=== PATIENT | female | born 1955 | race Hispanic/Latino ===

== ENCOUNTER 2018-04-27 08:54 | Emergency (ER) | payer BC, MEDICARE ==
[2018-04-27 09:31] LABS: BASOPHILS % (AUTO) 0.4 % (0.0-5.0); EOSINOPHILS % (AUTO) 0.7 % (0.0-8.0); HEMATOCRIT 40.8 % (36-48); LYMPHOCYTES % (AUTO) 12.1 % (21.0-51.0); MEAN CORPUSCULAR HEMOGLOBIN 28.2 pg (27.0-33.0); MEAN CORPUSCULAR HGB CONC 32.8 g/dL (32.0-36.0); MEAN CORPUSCULAR VOLUME 85.9 fL (79-99); MONOCYTES % (AUTO) 4.8 % (3.0-13.0); PLATELET COUNT (AUTO) 233 K/uL (130-400); RED BLOOD CELL COUNT(AUTO) 4.76 MIL/uL (4.00-5.50); RED CELL DISTRIBUTION WIDTH 13.8 % (11.0-15.5); WHITE BLOOD COUNT (AUTO) 7.2 K/uL (4.8-10.8)
[2018-04-27 09:53] LABS: CREATININE 0.7 mg/dL (0.5-1.5); POTASSIUM 3.4 mmol/L (3.5-5.1)
[2018-04-27 09:55] LABS: ALBUMIN 4.1 g/dL (3.5-5.0); BILIRUBIN,TOTAL 0.5 mg/dL (0.2-1.0)
[2018-04-27] MEDS ORDERED: MORPHINE SULFATE 4 MG/1ML SYG ONE (10:16)
[2018-04-27] MEDS ORDERED: ONDANSETRON HCL 4 MG/2 ML VIAL ONE (10:18)
== END 2018-04-27 11:34 | disposition home or self-care (01) ==
LOC: EDH 08:54
DX: J01.20 Acute ethmoidal sinusitis, unspecified (principal); R51 Headache; I10 Essential (primary) hypertension; I25.2 Old myocardial infarction; Z88.6 Allergy status to analgesic agent; Z90.710 Acquired absence of both cervix and uterus; Z90.49 Acquired absence of other specified parts of digestive tract
CPT/HCPCS: 36415; 70450; 80053; 85025; 96374; 96375; 99285; J2270; J2405

== ENCOUNTER 2018-10-07 15:04 | Emergency (ER) | payer BC, MEDICARE, OTHER ==
[2018-10-07] MEDS ORDERED: TRAMADOL HCL 50 MG TABLET ONE (15:53)
== END 2018-10-07 16:04 | disposition home or self-care (01) ==
LOC: EDH 15:04
DX: S82.092A Other fracture of left patella, initial encounter for closed fracture (principal); I10 Essential (primary) hypertension; I25.2 Old myocardial infarction; Z90.49 Acquired absence of other specified parts of digestive tract; Z90.710 Acquired absence of both cervix and uterus; Z88.6 Allergy status to analgesic agent; W18.39XA Other fall on same level, initial encounter; Y93.89 Activity, other specified; Y92.89 Other specified places as the place of occurrence of the external cause; Y99.8 Other external cause status
CPT/HCPCS: 29505; 73562

== ENCOUNTER → 2019-10-24 | Outpatient (CLI) | payer OTHER ==
[~2019-10-24] MED LIST: REGADENOSON 0.4 MG/5 ML PF SYG IVP ONE; REGADENOSON 0.4 MG/5 ML PF SYG IVP SCH
== END | disposition home or self-care (01) ==
LOC: SHCH 07:53
PROVIDERS: ATTEND Internal Medicine Cardiovascular Disease
DX: I25.89 Other forms of chronic ischemic heart disease (principal); I21.19 ST elevation (STEMI) myocardial infarction involving other coronary artery of inferior wall; I21.29 ST elevation (STEMI) myocardial infarction involving other sites; I25.10 Atherosclerotic heart disease of native coronary artery without angina pectoris
CPT/HCPCS: 78452; 93017; 96374; A9500 ×2; J2785

== ENCOUNTER → 2021-10-19 | Outpatient (CLI) | payer OTHER ==
[~2021-10-19] VITALS: Ht 154.9 cm; Wt 74.4 kg
[~2021-10-19] MED LIST changes: -REGADENOSON 0.4 MG/5 ML PF SYG IVP ONE
== END | disposition home or self-care (01) ==
LOC: SHCH 09:01
PROVIDERS: ATTEND Internal Medicine Cardiovascular Disease
DX: Z01.810 Encounter for preprocedural cardiovascular examination (principal); M17.11 Unilateral primary osteoarthritis, right knee; I25.5 Ischemic cardiomyopathy; I51.7 Cardiomegaly
CPT/HCPCS: 78452; 93017; 96374; A9500 ×2; J2785

== ENCOUNTER 2022-02-24 18:38 | Observation (INO) | payer OTHER ==
[~2022-02-24] VITALS: Ht 154.9 cm; Wt 71.0 kg
[2022-02-24] MEDS ORDERED: ASPIRIN 325MG TAB PO ONE (19:00)
[2022-02-24] MEDS ORDERED: NITROGLYCERIN 0.4 MG SL TAB SL PRN (19:00)
[2022-02-24] MEDS ORDERED: NITROGLYCERIN 1GM OINT 1 INCH/1GM TD ONE (19:00)
[2022-02-24 19:06] LABS: BASOPHILS % (AUTO) 0.3 % (0.0-5.0); EOSINOPHILS % (AUTO) 2.2 % (0.0-8.0); HEMATOCRIT 36.2 % (36-48); MEAN CORPUSCULAR HEMOGLOBIN 28.6 pg (27.0-33.0); MEAN CORPUSCULAR HGB CONC 33.7 g/dL (32.0-36.0); MEAN CORPUSCULAR VOLUME 84.8 fL (79-99); MONOCYTES % (AUTO) 7.7 % (3.0-13.0); NEUTROPHILS % (AUTO) 66.5 % (40.0-77.0); PLATELET COUNT (AUTO) 275 K/uL (130-400); RED BLOOD CELL COUNT(AUTO) 4.27 MIL/uL (4.00-5.50); RED CELL DISTRIBUTION WIDTH 13.9 % (11.0-15.5); WHITE BLOOD COUNT (AUTO) 9.5 K/uL (4.8-10.8)
[2022-02-24 19:14] LABS: CREATININE 0.9 mg/dL (0.5-1.5); POTASSIUM 3.1 mmol/L (3.5-5.1)
[2022-02-24 19:18] LABS: ALBUMIN 3.8 g/dL (3.5-5.0); MAGNESIUM 2.2 mg/dL (1.80-2.40); TOTAL PROTEIN, SERUM 7.6 g/dL (6.0-8.3)
[2022-02-24 19:21] LABS: B-TYPE NATRIURETIC PEPTIDE 102 pg/mL (0-100)
[2022-02-24 19:26] LABS: INR 0.94 (0.85-1.15); PROTHROMBIN TIME 10.3 SEC (9.6-11.6)
[2022-02-24 19:27] LABS: PARTIAL THROMBOPLASTIN TIME 23.9 SEC (26.3-35.5)
[2022-02-24] MEDS ORDERED: METO-391 PO (19:54)
[2022-02-24] MEDS ORDERED: ASPI-1005 PO (19:54)
[2022-02-24] MEDS ORDERED: PANT40TA54 PO (19:54)
[2022-02-24] MEDS ORDERED: HYDR12.54 PO (19:54)
[2022-02-24] MEDS ORDERED: AMLO-257 PO (19:54)
[2022-02-24] MEDS ORDERED: OLME40TA18 PO (19:54)
[2022-02-24] MEDS ORDERED: DICL100G31 TP (19:54)
[2022-02-24] MEDS ORDERED: SIMV40TA59 PO (19:54)
[2022-02-24] MEDS ORDERED: ACETAMINOPHEN 325 MG TAB PO PRN (20:00)
[2022-02-24] MEDS ORDERED: LIDOCAINE HCL-MPF 1% 2ML VIAL IV PRN (20:00)
[2022-02-24] MEDS ORDERED: POTASSIUM CHLORIDE 10% ELIXIR 20 MEQ/15 ML UDCUP PO PRN (20:00)
[2022-02-24] MEDS: NITROGLYCERIN 1GM OINT 1 INCH/1GM TD SCH (20:00)
[2022-02-24] MEDS ORDERED: POTASSIUM BICARB/CIT AC 25 MEQ TABLET.EFF PO ONE (20:00)
[2022-02-24] MEDS ORDERED: POTASSIUM CHLORIDE 20MEQ/100ML 100 ML IV PRN (20:00)
[2022-02-24] MEDS ORDERED: KCL 20 MEQ ERTAB PO PRN (20:00)
[2022-02-24] MEDS ORDERED: ONDANSETRON 4MG INJ IV PRN (20:00)
[2022-02-24] MEDS ORDERED: MORPHINE 4 MG SYG IV PRN (20:00)
[2022-02-24] MEDS: MORPHINE 2 MG SYG IV PRN ×2 (20:37→21:10)
[2022-02-24 20:46] LABS: APPEARANCE,URINE Clear (CLEAR); BILIRUBIN,URINE Negative (NEGATIVE); COLOR,URINE Yellow (YELLOW); GLUCOSE, URINE (UA) Negative (NEGATIVE); KETONES,URINE Negative (NEGATIVE); LEUKOCYTE ESTERASE ,URINE Small (NEGATIVE); NITRATE,URINE Negative (NEGATIVE); OCCULT BLOOD,URINE Negative (NEGATIVE); PROTEIN,URINE Negative (NEGATIVE); UROBILINOGEN,URINE 0.2 mg/dL (0.2-1.0)
[2022-02-24 21:07] LABS: BACTERIA,URINE Rare /HPF (None Seen); RBC,URINE 0-1 /HPF (0-1)
[2022-02-24 21:08] LABS: SQUAMOUS EPITHELIAL CELL,UR Rare /HPF (0-2)
[2022-02-25] MEDS: NITROGLYCERIN 1GM OINT 1 INCH/1GM TD SCH ×2 (03:40→12:00)
[2022-02-25 03:56] LABS: BASOPHILS % (AUTO) 0.6 % (0.0-5.0); EOSINOPHILS % (AUTO) 4.2 % (0.0-8.0); HEMATOCRIT 35.5 % (36-48); LYMPHOCYTES % (AUTO) 30.6 % (21.0-51.0); MEAN CORPUSCULAR HEMOGLOBIN 27.7 pg (27.0-33.0); MEAN CORPUSCULAR HGB CONC 32.4 g/dL (32.0-36.0); MEAN CORPUSCULAR VOLUME 85.5 fL (79-99); MONOCYTES % (AUTO) 9.1 % (3.0-13.0); NEUTROPHILS % (AUTO) 55.2 % (40.0-77.0); PLATELET COUNT (AUTO) 250 K/uL (130-400); RED BLOOD CELL COUNT(AUTO) 4.15 MIL/uL (4.00-5.50); RED CELL DISTRIBUTION WIDTH 13.9 % (11.0-15.5)
[2022-02-25 04:00] VITALS: BP 126/76
[2022-02-25 04:09] LABS: CREATININE 0.8 mg/dL (0.5-1.5); MAGNESIUM 2.2 mg/dL (1.80-2.40); POTASSIUM 4.2 mmol/L (3.5-5.1)
[2022-02-25 07:36] VITALS: BP 115/75
[2022-02-25] MEDS ORDERED: FAMOTIDINE 20MG VIAL IV SCH (09:00)
[2022-02-25] MEDS ORDERED: ASPIRIN 81MG CHEW TAB PO SCH (09:00)
[2022-02-25] MEDS ORDERED: ENOXAPARIN SODIUM 40 MG/0.4 ML SYRINGE SQ SCH (09:00)
[2022-02-25] MEDS ORDERED: CEFTRIAXONE 1G VIAL IVP SCH (11:00)
[2022-02-25 11:31] VITALS: BP 116/66
[2022-02-25] MEDS ORDERED: TRAM50TA4 PO (11:39)
== END 2022-02-25 14:18 | disposition home or self-care (01) ==
LOC: EDH 18:38 → EDHIP 19:51 → INTOOBSV 19:51 → EDHIP 22:17 → 2AH 23:22
PROVIDERS: ADMIT Internal Medicine; ATTEND Internal Medicine
DX: U07.1 COVID-19 (principal); R07.89 Other chest pain; R79.89 Other specified abnormal findings of blood chemistry; E87.6 Hypokalemia; I10 Essential (primary) hypertension; J45.909 Unspecified asthma, uncomplicated; I25.10 Atherosclerotic heart disease of native coronary artery without angina pectoris; M19.90 Unspecified osteoarthritis, unspecified site; F06.4 Anxiety disorder due to known physiological condition; I24.9 Acute ischemic heart disease, unspecified; I49.3 Ventricular premature depolarization; I25.2 Old myocardial infarction; Z79.82 Long term (current) use of aspirin; Z79.899 Other long term (current) drug therapy; Z90.710 Acquired absence of both cervix and uterus
CPT/HCPCS: 96374; 96376; 99285; 83735 ×2; 84484 ×4; 80053; 83880; 85025 ×2; 85610; 85730; 81001; 36415 ×2; 87635; 71045; 93005; 96372; 96375; 84100; 80048; G0378 ×4; J3490; J0696; J1650

== ENCOUNTER 2022-04-11 06:20 | Observation (INO) | payer OTHER ==
[2022-04-08 10:23] LABS: BASOPHILS % (AUTO) 0.7 % (0.0-5.0); EOSINOPHILS % (AUTO) 6.1 % (0.0-8.0); HEMATOCRIT 38.3 % (36-48); LYMPHOCYTES % (AUTO) 47.8 % (21.0-51.0); MEAN CORPUSCULAR HEMOGLOBIN 27.5 pg (27.0-33.0); MEAN CORPUSCULAR HGB CONC 32.6 g/dL (32.0-36.0); MEAN CORPUSCULAR VOLUME 84.2 fL (79-99); MONOCYTES % (AUTO) 20.1 % (3.0-13.0); PLATELET COUNT (AUTO) 242 K/uL (130-400); RED BLOOD CELL COUNT(AUTO) 4.55 MIL/uL (4.00-5.50); RED CELL DISTRIBUTION WIDTH 13.5 % (11.0-15.5); WHITE BLOOD COUNT (AUTO) 2.9 K/uL (4.8-10.8)
[2022-04-08 10:35] LABS: ALBUMIN 3.9 g/dL (3.5-5.0); CARBON DIOXIDE 34 mmol/L (21-32); CHLORIDE 103 mmol/L (101-111); CREATININE 0.9 mg/dL (0.5-1.5); CRP QUANTITATIVE < 2.00 mg/L (0.00-9.0); GLOMERULAR FILTR. RATE CALC 66 mL/min (>60); GLUCOSE,RANDOM 105 mg/dL (70-105); INR 0.93 (0.85-1.15); POTASSIUM 3.1 mmol/L (3.5-5.1); PROTHROMBIN TIME 10.2 SEC (9.6-11.6); SODIUM SERUM 143 mmol/L (136-145); UREA NITROGEN, BLOOD 13 mg/dL (7-18)
[2022-04-08 10:36] LABS: PARTIAL THROMBOPLASTIN TIME 25.6 SEC (26.3-35.5)
[2022-04-08 10:54] VITALS: BP 147/86
[2022-04-08 11:26] LABS: EOSINOPHILS % (MANUAL) 4 % (1-6); LYMPHOCYTES % (MANUAL) 44 % (22-44); MAN.DIFF COMMENT-IMPRESSION MANUAL DIFFERENTIAL; MONOCYTES % (MANUAL) 14 % (2-9); PLATELET MORPHOLOGY COMMENT ADEQUATE; SEGMENTED NEUTROPHILS % 38 % (40-70)
[~2022-04-11] VITALS: Ht 154.9 cm; Wt 71.1 kg
[2022-04-11] VITALS (26 sets, daily range): BP systolic 110–146; BP diastolic 61–86
[~2022-04-11 06:20] MED LIST changes: +AMLO-257 PO; +ASPI-1005 PO; +DICL100G31 TP; +HYDR12.54 PO; +METO-391 PO; +MONT-39 PO; +OLME40TA18 PO; +PANT40TA54 PO; -REGADENOSON 0.4 MG/5 ML PF SYG IVP SCH
[2022-04-11] MEDS ORDERED: POTA-202 PO (07:12)
[2022-04-11] MEDS ORDERED: LACTATED RINGERS 1000ML 1,000 ML IV ONE (07:29)
[2022-04-11] MEDS ORDERED: CEFAZOLIN SODIUM 1 GM VIAL IVP ONE (08:00)
[2022-04-11] MEDS ORDERED: KETOROLAC 30MG VIAL (30MG/ML) ONE (10:12)
[2022-04-11] MEDS ORDERED: ROPIVACAINE 0.5% 5MG/ML 30ML IJ ONE (10:12)
[2022-04-11] MEDS ORDERED: SUCCINYLCHOLINE CHLORIDE 20 MG/ML 10 ML VIAL ONE (10:37)
[2022-04-11] MEDS ORDERED: SUCCINYLCHOLINE 200MG/10ML SYR ONE (10:37)
[2022-04-11] MEDS ORDERED: PROPOFOL 10 MG/ML 20ML VIAL IV ONE (10:38)
[2022-04-11] MEDS ORDERED: NEOSTIGMINE 5MG/5ML SYR IV ONE (10:38)
[2022-04-11] MEDS ORDERED: MIDAZOLAM HCL 1 MG/ML 2ML VIAL ONE (10:38)
[2022-04-11] MEDS ORDERED: ROCURONIUM 10MG/1ML SYR 10 MG/ML ML ONE (10:38)
[2022-04-11] MEDS ORDERED: ONDANSETRON 4MG INJ ONE (10:38)
[2022-04-11] MEDS ORDERED: GLYCOPYRROLATE 1 MG/5 ML SYRINGE ONE ×2 (10:38→13:19)
[2022-04-11] MEDS ORDERED: FENTANYL CITRATE PF 50 MCG/1 ML 2ML VIAL ONE (10:39)
[2022-04-11] MEDS: TRANEXAMIC ACID 1000MG/10ML ONE ×2 (10:55→12:19)
[2022-04-11] MEDS ORDERED: ATROPINE 1MG SYG IVP ONE (10:57)
[2022-04-11] MEDS ORDERED: MEPERIDINE-PF 25 MG/ML SYG ONE ×3 (12:19→13:57)
[2022-04-11] MEDS: KETOROLAC 15MG/ML VIAL (15MG/ML) IV SCH ×2 (13:30→18:30)
[2022-04-11] MEDS ORDERED: POTASSIUM CHLORIDE 20MEQ/100ML 100 ML IV PRN (13:30)
[2022-04-11] MEDS ORDERED: KCL 20 MEQ ERTAB PO PRN (13:30)
[2022-04-11] MEDS ORDERED: POTASSIUM CHLORIDE 10% ELIXIR 20 MEQ/15 ML UDCUP PO PRN (13:30)
[2022-04-11] MEDS ORDERED: LIDOCAINE HCL-MPF 1% 2ML VIAL IV PRN (13:30)
[2022-04-11] MEDS ORDERED: FERROUS FUMARATE 324 MG TABLET PO PRN (13:30)
[2022-04-11] MEDS ORDERED: CALCIUM CARB 500MG PO PRN (13:30)
[2022-04-11] MEDS ORDERED: 0.9%NACL 1000ML 1,000 ML IV SCH (13:30)
[2022-04-11] MEDS ORDERED: CYCLOBENZAPRINE HCL 10 MG TABLET PO PRN (13:30)
[2022-04-11] MEDS: GABAPENTIN 100 MG CAPSULE PO SCH ×2 (14:48→21:39)
[2022-04-11] MEDS: HYDROCODONE/ACETAMINOPHEN 5/325 MG TAB PO PRN (14:49)
[2022-04-11] MEDS: TRAMADOL HCL 50 MG TABLET PO PRN (16:26)
[2022-04-11] MEDS ORDERED: DICLOFENAC SODIUM TP PRN (17:00)
[2022-04-11] MEDS: CEFAZOLIN SODIUM 1 GM VIAL IVP SCH (18:30)
[2022-04-11] MEDS: DOCUSATE SODIUM 100 MG CAP PO SCH (21:39)
[2022-04-12 01:18] VITALS: BP 116/63
[2022-04-12] MEDS ORDERED: CEFAZOLIN SODIUM 1 GM VIAL ONE (03:40)
[2022-04-12] MEDS ORDERED: KETOROLAC 15MG/ML VIAL (15MG/ML) ONE (03:41)
[2022-04-12] MEDS: CEFAZOLIN SODIUM 1 GM VIAL IVP SCH (03:42)
[2022-04-12] MEDS: KETOROLAC 15MG/ML VIAL (15MG/ML) IV SCH (03:45)
[2022-04-12 04:28] VITALS: BP 107/51
[2022-04-12 05:49] LABS: HEMATOCRIT 30.9 % (36-48); MEAN CORPUSCULAR HEMOGLOBIN 27.7 pg (27.0-33.0); MEAN CORPUSCULAR HGB CONC 32.7 g/dL (32.0-36.0); MEAN CORPUSCULAR VOLUME 84.7 fL (79-99); RED BLOOD CELL COUNT(AUTO) 3.65 MIL/uL (4.00-5.50); RED CELL DISTRIBUTION WIDTH 13.5 % (11.0-15.5); WHITE BLOOD COUNT (AUTO) 5.7 K/uL (4.8-10.8)
[2022-04-12 06:09] LABS: CREATININE 0.8 mg/dL (0.5-1.5); POTASSIUM 4.5 mmol/L (3.5-5.1)
[2022-04-12] MEDS: HYDROCODONE/ACETAMINOPHEN 5/325 MG TAB PO PRN ×2 (07:46→21:05)
[2022-04-12 08:28] VITALS: BP 106/56
[2022-04-12] MEDS: DOCUSATE SODIUM 100 MG CAP PO SCH ×2 (09:19→21:01)
[2022-04-12] MEDS: POLYETHYLENE GLYCOL 3350 17 GM POWD.PACK PO SCH (09:19)
[2022-04-12] MEDS: PANTOPRAZOLE 40 MG TAB DR PO SCH (09:20)
[2022-04-12] MEDS: METOPROLOL SUCCINATE 50 MG TAB.SR.24H PO SCH (09:20)
[2022-04-12] MEDS: MONTELUKAST SODIUM 10 MG TAB PO SCH (09:20)
[2022-04-12] MEDS: TRAMADOL HCL 50 MG TABLET PO PRN (09:20)
[2022-04-12] MEDS: HYDROCHLOROTHIAZIDE 25 MG TABLET PO SCH (09:20)
[2022-04-12] MEDS: GABAPENTIN 100 MG CAPSULE PO SCH ×3 (09:20→21:01)
[2022-04-12] MEDS: LOSARTAN 100 MG TABLET PO SCH (09:21)
[2022-04-12] MEDS: AMLODIPINE 5 MG TAB PO SCH (09:21)
[2022-04-12] MEDS: ASPIRIN 325MG TAB PO SCH (09:21)
[2022-04-12] MEDS: ONDANSETRON 4MG INJ IVP PRN (10:20)
[2022-04-12 11:08] VITALS: BP 101/58
[2022-04-12] MEDS ORDERED: BENZOCAINE/MENTH/CETYLPYRD CL 1 EACH LOZENGE MM ONE (14:55)
[2022-04-12] MEDS ORDERED: BENZOCAINE/MENTH/CETYLPYRD CL 1 EACH LOZENGE MM PRN (15:00)
[2022-04-12 16:01] VITALS: BP 102/56
[2022-04-12 20:59] VITALS: BP 102/55
[2022-04-13 00:24] VITALS: BP 102/49
[2022-04-13 04:32] VITALS: BP 110/54
[2022-04-13] MEDS: HYDROCODONE/ACETAMINOPHEN 5/325 MG TAB PO PRN ×3 (05:06→21:34)
[2022-04-13 08:00] VITALS: BP 95/60
[2022-04-13] MEDS: MONTELUKAST SODIUM 10 MG TAB PO SCH (08:23)
[2022-04-13] MEDS: POLYETHYLENE GLYCOL 3350 17 GM POWD.PACK PO SCH (08:23)
[2022-04-13] MEDS: DOCUSATE SODIUM 100 MG CAP PO SCH ×2 (08:23→20:25)
[2022-04-13] MEDS: PANTOPRAZOLE 40 MG TAB DR PO SCH (08:23)
[2022-04-13] MEDS: GABAPENTIN 100 MG CAPSULE PO SCH ×3 (08:23→20:25)
[2022-04-13] MEDS: ASPIRIN 325MG TAB PO SCH (08:23)
[2022-04-13] MEDS: LOSARTAN 100 MG TABLET PO SCH (09:00)
[2022-04-13] MEDS: HYDROCHLOROTHIAZIDE 25 MG TABLET PO SCH (09:00)
[2022-04-13] MEDS: METOPROLOL SUCCINATE 50 MG TAB.SR.24H PO SCH (09:00)
[2022-04-13] MEDS: AMLODIPINE 5 MG TAB PO SCH (09:00)
[2022-04-13] MEDS: TRAMADOL HCL 50 MG TABLET PO PRN (10:34)
[2022-04-13] MEDS: ONDANSETRON 4MG INJ IVP PRN (10:34)
[2022-04-13 12:00] VITALS: BP 91/54
[2022-04-13 16:00] VITALS: BP 103/60
[2022-04-13 20:29] VITALS: BP 135/70
[2022-04-14 00:03] VITALS: BP 109/57
[2022-04-14 06:20] VITALS: BP 94/63
[2022-04-14 08:00] VITALS: BP 106/59
[2022-04-14] MEDS: HYDROCODONE/ACETAMINOPHEN 5/325 MG TAB PO PRN (08:20)
[2022-04-14] MEDS: MONTELUKAST SODIUM 10 MG TAB PO SCH (08:20)
[2022-04-14] MEDS: ASPIRIN 325MG TAB PO SCH (08:20)
[2022-04-14] MEDS: DOCUSATE SODIUM 100 MG CAP PO SCH (08:20)
[2022-04-14] MEDS: GABAPENTIN 100 MG CAPSULE PO SCH ×2 (08:21→14:00)
[2022-04-14] MEDS: PANTOPRAZOLE 40 MG TAB DR PO SCH (08:21)
[2022-04-14] MEDS: POLYETHYLENE GLYCOL 3350 17 GM POWD.PACK PO SCH (08:21)
[2022-04-14] MEDS: AMLODIPINE 5 MG TAB PO SCH (09:00)
[2022-04-14] MEDS: METOPROLOL SUCCINATE 50 MG TAB.SR.24H PO SCH (09:00)
[2022-04-14] MEDS: HYDROCHLOROTHIAZIDE 25 MG TABLET PO SCH (09:00)
[2022-04-14] MEDS: LOSARTAN 100 MG TABLET PO SCH (09:00)
[2022-04-14 12:00] VITALS: BP 103/62
[2022-04-14] MEDS ORDERED: CYCL-309 PO (12:32)
[2022-04-14] MEDS ORDERED: HYDR-4060 PO (12:32)
[2022-04-14] MEDS ORDERED: ASPI-1026 PO (12:32)
[2022-04-14] MEDS ORDERED: GABA100C PO (12:32)
[2022-04-14] MEDS ORDERED: Docusate Sodium 100 Mg Cap PO (12:32)
[2022-04-14] MEDS ORDERED: BISACODYL 10 MG SUPP.RECT RC PRN (13:30)
== END 2022-04-14 18:30 | disposition home or self-care (01) ==
LOC: DAH 06:20 → INTOOBSV 06:21 → DAHIP 06:21 → DAH 06:21 → 4AH 14:37
PROVIDERS: ADMIT Student in an Organized Health Care Education/Training Program; ATTEND Student in an Organized Health Care Education/Training Program
DX: M17.11 Unilateral primary osteoarthritis, right knee (principal); Z20.822 Contact with and (suspected) exposure to COVID-19; M25.561 Pain in right knee; G89.29 Other chronic pain; I25.10 Atherosclerotic heart disease of native coronary artery without angina pectoris; I42.9 Cardiomyopathy, unspecified; I10 Essential (primary) hypertension; F32.9 Major depressive disorder, single episode, unspecified; E66.9 Obesity, unspecified; E78.5 Hyperlipidemia, unspecified; Z79.82 Long term (current) use of aspirin; Z90.49 Acquired absence of other specified parts of digestive tract; Z90.710 Acquired absence of both cervix and uterus; Z98.61 Coronary angioplasty status; Z68.29 Body mass index [BMI] 29.0-29.9, adult
CPT/HCPCS: 82040; 80048 ×2; 85025; 85610; 85730; 84134; 86140; 87426; 36415 ×3; 93005; 76942; 64447; 27447; 96374; 96375 ×2; 84132; 73560; 97039 ×6; 96376 ×2; 85027; 97161; 97116 ×6; 97530 ×4; A4663; J7120 ×2; A4215 ×2; J3010; J0690 ×3; J3490 ×3; J0330 ×2; J2710; J0461; J2250; J2704; J2405 ×3; J1885 ×2; J2175 ×3; J2795; G0168; A4649 ×3; C1776 ×2; A4930; A6255; A5120; A4223; A4335; A4222; A4221; G0378 ×51